=== PATIENT | male | born 1975 | race Caucasian/White ===

== ENCOUNTER 2022-01-29 10:37 | Emergency (ER) | payer MEDICAID ==
[~2022-01-29] VITALS: Ht 177.8 cm; Wt 49.0 kg
[2022-01-29 10:47] VITALS: BP_SYST 149
[2022-01-29 11:28] LABS: BASOPHILS # (AUTO) 0.1 K/uL (0.0-0.2); EOSINOPHILS # (AUTO) 0.2 K/uL (0.0-0.4); EOSINOPHILS % (AUTO) 2.9 % (0.0-4.0); HEMATOCRIT 45.4 % (36-54); HEMOGLOBIN 15.8 g/dL (14.0-18.0); LYMPHOCYTES # (AUTO) 1.6 K/uL (1.0-5.5); LYMPHOCYTES % (AUTO) 23.9 % (20.5-51.5); MEAN CORPUSCULAR HEMOGLOBIN 29 pg (27-31); MEAN CORPUSCULAR HGB CONC 35 % (32-36); MEAN CORPUSCULAR VOLUME 84 fL (79.0-98.0); MONOCYTES # (AUTO) 0.4 K/uL (0.0-1.0); MONOCYTES % (AUTO) 6.5 % (1.7-9.3); NEUTROPHILS # (AUTO) 4.3 K/uL (1.8-7.7); NEUTROPHILS % (AUTO) 65.7 % (40.0-70.0); PLATELET COUNT (AUTO) 334 K/uL (130-430); RED BLOOD CELL COUNT(AUTO) 5.38 MIL/uL (4.2-6.2); RED CELL DISTRIBUTION WIDTH 13.3 % (9.0-15.0); WHITE BLOOD COUNT (AUTO) 6.5 K/uL (4.8-10.8)
[2022-01-29 11:37] LABS: ANION GAP 6 (5-15); CALCIUM 9.4 mg/dL (8.4-11.0); CHLORIDE 103 mmol/L (98-107); CREATININE 0.81 mg/dL (0.55-1.30); GLUCOSE 102 mg/dL (70-99); UREA NITROGEN, BLOOD 15 mg/dL (8-21)
[2022-01-29 11:38] LABS: GFR AFRICAN AMERICAN 131 mL/min (>90)
[2022-01-29 11:52] LABS: ALANINE AMINOTRANSFERASE 100 U/L (12-78); ALBUMIN 4.1 g/dL (3.4-4.8); ASPARTATE AMINOTRANSFERASE 45 U/L (10-37); TOTAL BILIRUBIN 0.5 mg/dL (0.0-1.0)
--- NOTE | 2022-01-29 16:29 | NUR ---
Placed in room 01 . Placed on esthetician spa, blood pressure machine and pulse oximeter. To gown for exam. Side rails up. Report given to IRLANDA BAKER.
--- NOTE | 2022-01-29 16:35 | NUR ---
RECEIVED PT FROM IRLANDA MOTLEY. ASSUMED CARE.
--- NOTE | 2022-01-29 17:05 | NUR ---
DR. AUSTIN AT BEDSIDE TO ASSESS AND DISCUSS POC WITH PT.
--- NOTE | 2022-01-29 17:10 | NUR ---
Patient given written and verbal discharge instructions and verbalizes understanding. ER MD discussed with patient the results and treatment provided. Patient in stable condition. ID arm band removed. IV catheter removed intact and dressing applied, no active bleeding. Rx of NAPROXEN given. Patient educated on pain management and to follow up with PMD. Pain Scale 0/10. Opportunity for questions provided and answered. Medication side effect fact sheet provided.
[2022-01-29] MEDS ORDERED: NAPR-690 PO (17:11)
[2022-01-29 17:59] VITALS: BP_SYST 142
== END 2022-01-29 17:59 | disposition home or self-care (01) ==
LOC: SED 10:37
DX: J11.1 Influenza due to unidentified influenza virus with other respiratory manifestations (principal); R07.89 Other chest pain; M54.50 Low back pain, unspecified; Z79.899 Other long term (current) drug therapy
CPT/HCPCS: 36415; 71045; 80053; 83880; 84484; 85025; 93005; 99285